=== PATIENT | female | born 1990 | race American Indian/Alaskan Native ===

== ENCOUNTER 2016-11-11 22:05 | Emergency (ER) | payer MEDICAID ==
--- NOTE | 2016-11-11 22:29 | EDM.PDOC ---
ED HPI GENERAL MEDICAL PROBLEM - General Stated Complaint: HEAT IN THE HEAD [id number] Time Seen by Provider: 11/11/16 22:24 Source of Information: Reports: Patient History Limitations: Reports: No Limitations - History of Present Illness INITIAL COMMENTS - FREE TEXT/NARRATIVE: was playing basket ball and got elbowed quite hard to left face, dazed no LOC, but also cut left face. denies N/V/unsteadiness - Related Data Allergies Allergy/AdvReac Type Severity Reaction Status Date / Time No Known Allergies Allergy Verified 11/11/16 23:18 Home Meds: Home Meds . [No Known Home Meds] 11/11/16 [History] ED ROS GENERAL - Review of Systems Review Of Systems: ROS reveals no pertinent complaints other than HPI. ED EXAM, HEAD INJURY - Physical Exam Exam: See Below Exam Limited By: No Limitations General Appearance: Alert, WD/WN, No Apparent Distress Head: Facial Ecchymosis, Facial Lacerations, Facial Swelling. No: Stanley's Sign , Raccoon Eyes Nexus Criteria: No: Posterior, Midline Cervical Tenderness, Evidence of Intoxication, Altered Level of Consciousness, Focal Neurological Deficit, Painful Distraction Injuries Eyes: Bilateral Eye: PERRL (pupils ER @ 4mm) Ears: Hearing Grossly Normal Throat/Mouth: Normal Voice, No Airway Compromise Neck: Non-Tender, Full Range of Motion Respiratory: No Respiratory Distress Cardiovascular: Regular Rate, Rhythm GI/Abdominal Exam (Abbreviated): Soft, Non-Tender Neurologic: No Motor/Sensory Deficits, Alert, Normal Mood/Affect, Oriented x 3 Skin: Normal Color, Warm/Dry ED LACERATION/WOUND & ELIUD PROC - Laceration/Wound Repair Left Cheek Lac/wound length in cm: 2 (left cheek) Appearance: Superficial, Linear, Clean Skin Prep: Chlorhexidine (Hibiciens) Exploration/Debridement/Repair: Wound Explored, in a Bloodless Field Closed with: Dermabond Sterile Dressing Applied: Nurse Tetanus Status Addressed: Yes Complications: No Course - Vital Signs Last Recorded V/S: Last Vital Signs Temp 36.8 C 11/11/16 22:14 Pulse 91 11/11/16 22:14 Resp 16 11/11/16 22:14 BP 117/64 11/11/16 22:14 Pulse Ox 98 11/11/16 22:14 - Orders/Labs/Meds Labs: Laboratory Tests 11/11/16 Range/Units 22:25 Urine HCG, Qual Negative - Re-Assessments/Exams Free Text/Narrative Re-Assessment/Exam: 11/12/16 00:33 negative results discussed with Pt. Departure - Departure Time of Disposition: 00:33 Disposition: Home, Self-Care 01 Condition: Good Clinical Impression: Cheek laceration Qualifiers: Encounter type: initial encounter Laterality: left Qualified Code(s): S01.412A - Laceration without foreign body of left cheek and temporomandibular area, initial encounter Contusion of face Qualifiers: Encounter type: initial encounter Qualified Code(s): S00.83XA - Contusion of other part of head, initial encounter - Discharge Information Instructions: Tissue Adhesive Wound Care, [id number] Forms: ED Department Discharge Additional Instructions: 1) ice to swelling 2) keep wound clean and dry 3) follow up at clinic or recheck if wound looks infected
[2016-11-12 01:29] VITALS: BP 129/70
== END 2016-11-12 00:35 | disposition home or self-care (01) ==
LOC: EDBD → DL.ED 22:05
DX: S01.412A Laceration without foreign body of left cheek and temporomandibular area, initial encounter (principal); S00.83XA Contusion of other part of head, initial encounter; W51.XXXA Accidental striking against or bumped into by another person, initial encounter; Y93.67 Activity, basketball
CPT/HCPCS: 12011; 70450; 70486; 81025; 99282; 99284